=== PATIENT | male | born 1990 | race Caucasian/White ===

== ENCOUNTER 2020-10-24 12:58 | Emergency (ER) | payer SELFPAY ==
[2020-10-24 13:56] VITALS: BP 117/71; PULSE 72; RESP 16; TEMP 36.6; O2SAT 98; BMI 21.9
[2020-10-24 15:23] LABS: Glucose Urine UA NEG (NEG); Leukocyte Esterase Urine NEG (NEG); Nitrite Urine NEG (NEG); PH 6.5 (5.0-8.0); Specific Gravity - Urine 1.015 (1.005-1.025); Urine Blood 3+ (NEG); Urine Ketones NEG (NEG); Urine Protein NEG (NEG-TRACE)
[2020-10-24 15:24] LABS: Appearance Urine HAZY; Color Urine YELLOW
[2020-10-24 15:59] LABS: WBC Urine 0-2 /HPF (0-4)
== END 2020-10-24 20:11 | disposition left against medical advice (07) ==
PROVIDERS: Emergency Provider Internal Medicine
DX: R10.9 Unspecified abdominal pain (principal)
CPT/HCPCS: 81001; 99282